=== PATIENT | male | born 1955 | race African-American/Black ===

== ENCOUNTER 2021-10-17 11:40 | Inpatient (IN) | payer MEDICAID ==
[~2021-10-17] VITALS: Ht 182.9 cm; Wt 74.8 kg
[2021-10-17 12:48] LABS: BASOPHILS % 0.4 % (0.0-2.0); HEMATOCRIT. 45.2 % (42.0-52.0); HEMOGLOBIN. 14.7 g/dL (14.0-18.0); LYMPHOCYTES % 26.3 % (20.0-50.0); MEAN CORPUSCULAR VOLUME 73.9 fL (80.0-94.0); MEAN PLATELET VOLUME 9.9 fl (7.4-10.4); MONOCYTES % 12.4 % (2.0-8.0); NEUTROPHILS % 59.9 % (40.0-76.0); PLATELET 151 x1000/uL (130-400); RED BLOOD CELL COUNT 6.12 mill/uL (4.7-6.1)
[2021-10-17 12:54] LABS: CHLORIDE 104 mEq/L (98-107)
[2021-10-17 12:58] LABS: ETHANOL BLOOD < 10 mg/dL
[2021-10-17] MEDS ORDERED: ASPIRIN 325MG TABLET PO ONE (13:45)
[2021-10-17] MEDS ORDERED: CLOPIDOGREL 75MG TABLET PO ONE (13:45)
[2021-10-17 15:45] LABS: CLARITY URINE CLEAR (CLEAR); COLOR URINE YELLOW (YELLOW); KETONES URINE TRACE (NEGATIVE); LEUKOCYTE ESTERASE URINE NEGATIVE (NEGATIVE); NITRITE URINE NEGATIVE (NEGATIVE); OCCULT BLOOD URINE NEGATIVE (NEGATIVE); PROTEIN URINE NEGATIVE (NEGATIVE); SPECIFIC GRAVITY URINE 1.016 (1.005-1.030)
[2021-10-17 16:00] LABS: *AMPHETAMINES SCREEN URINE NEGATIVE (NEGATIVE); *BARBITURATES SCREEN URINE NEGATIVE (NEGATIVE); *COCAINE SCREEN URINE NEGATIVE (NEGATIVE)
[2021-10-17 16:01] LABS: *BENZODIAZEPINES SCREEN URINE NEGATIVE (NEGATIVE); CANNABINOID URINE SCREEN PRESUMTIVE POSITIVE (NEGATIVE); METHADONE URINE SCREEN NEGATIVE (NEGATIVE); OPIATES URINE SCREEN NEGATIVE (NEGATIVE); PHENCYCLIDINE URINE SCREEN NEGATIVE (NEGATIVE)
[2021-10-17] MEDS ORDERED: AMLO10TA80 PO (23:39)
[2021-10-17] MEDS ORDERED: ATOR40TA70 PO (23:39)
[2021-10-17] MEDS ORDERED: HYDR25TA PO (23:39)
[2021-10-17] MEDS ORDERED: GABA-532 PO (23:39)
[2021-10-17] MEDS ORDERED: ACETAMINOPHEN 325MG TABLET PO PRN (23:45)
[2021-10-18 00:25] VITALS: BP 162/100
[2021-10-18 04:00] VITALS: BP 138/81
[2021-10-18] MEDS: GABAPENTIN 300MG CAPSULE PO SCH ×3 (05:17→21:20)
[2021-10-18 08:00] VITALS: BP 158/72
[2021-10-18 08:08] LABS: HEMOGLOBIN. 13.7 g/dL (14.0-18.0); MEAN CORPUSCULAR HEMOGLOBIN 24.3 pg (28.0-32.0); MEAN CORPUSCULAR VOLUME 74.5 fL (80.0-94.0); MEAN PLATELET VOLUME 10.2 fl (7.4-10.4); PLATELET 164 x1000/uL (130-400); RED BLOOD CELL COUNT 5.63 mill/uL (4.7-6.1); RED CELL DISTRIBUTION WIDTH 15.3 % (11.6-14.6)
[2021-10-18 08:43] LABS: CHLORIDE 105 mEq/L (98-107)
[2021-10-18 08:53] LABS: LDL CHOLESTEROL 107 mg/dL (5-100)
[2021-10-18 08:55] LABS: HDL CHOLESTEROL 44 mg/dL (40-59)
[2021-10-18] MEDS ORDERED: ENOXAPARIN 40MG/0.4ML SYR SUBCUT SCH (09:00)
[2021-10-18] MEDS: HYDROCHLOROTHIAZIDE 25MG TABLET PO SCH (09:00)
[2021-10-18] MEDS: AMLODIPINE 10MG TABLET PO SCH (10:50)
[2021-10-18 12:00] VITALS: BP 169/89
[2021-10-18 16:00] VITALS: BP 154/86
[2021-10-18 16:27] LABS: PLATELET ESTIMATE NORMAL
[2021-10-18] MEDS: ENOXAPARIN 40MG/0.4ML SYR SUBCUT SCH (18:22)
[2021-10-18 20:00] VITALS: BP 144/84
[2021-10-19] VITALS: BP 141/78
[2021-10-19 04:00] VITALS: BP 148/91
[2021-10-19] MEDS: GABAPENTIN 300MG CAPSULE PO SCH ×3 (06:36→22:28)
[2021-10-19 08:00] VITALS: BP 150/87
[2021-10-19] MEDS: ASPIRIN 81MG TABLET PO SCH (09:32)
[2021-10-19] MEDS: HYDROCHLOROTHIAZIDE 25MG TABLET PO SCH (09:32)
[2021-10-19] MEDS: THIAMINE HCL 100MG TABLET PO SCH (09:33)
[2021-10-19] MEDS: AMLODIPINE 10MG TABLET PO SCH (09:33)
[2021-10-19 12:00] VITALS: BP 152/78
[2021-10-19] MEDS: ENOXAPARIN 40MG/0.4ML SYR SUBCUT SCH (15:27)
[2021-10-19 16:00] VITALS: BP 150/67
[2021-10-19] MEDS ORDERED: ASPI-1406 MT (16:19)
[2021-10-19 20:00] VITALS: BP 167/91
[2021-10-19] MEDS ORDERED: ATORVASTATIN CALCIUM 40MG TABLET PO SCH (21:00)
[2021-10-19] MEDS ORDERED: CLONIDINE 0.1MG TABLET PO PRN (21:45)
[2021-10-20] VITALS: BP 126/78
[2021-10-20 04:00] VITALS: BP 152/79
[2021-10-20] MEDS: GABAPENTIN 300MG CAPSULE PO SCH ×2 (06:44→14:27)
[2021-10-20 08:00] VITALS: BP 150/87
[2021-10-20] MEDS: THIAMINE HCL 100MG TABLET PO SCH (08:43)
[2021-10-20] MEDS: ASPIRIN 81MG TABLET PO SCH (08:43)
[2021-10-20] MEDS: HYDROCHLOROTHIAZIDE 25MG TABLET PO SCH (08:43)
[2021-10-20] MEDS: AMLODIPINE 10MG TABLET PO SCH (08:44)
[2021-10-20] MEDS: ENOXAPARIN 40MG/0.4ML SYR SUBCUT SCH (08:44)
[2021-10-20] MEDS ORDERED: CLOPIDOGREL 75MG TABLET PO SCH (09:00)
[2021-10-20 12:00] VITALS: BP 152/93
[2021-10-20] MEDS ORDERED: IOHEXOL-350 100 ML BOTTLE ONE (13:07)
[2021-10-20 16:01] VITALS: BP 152/93
== END 2021-10-20 17:49 | disposition home health service (06) | DRG 45 ==
LOC: ER 12:00 → EDBEDREQ 14:19 → MICUSO 21:11 → 5WST 21:22
PROVIDERS: ADMIT Internal Medicine; ATTEND Internal Medicine
DX: I63.9 Cerebral infarction, unspecified (principal); G81.91 Hemiplegia, unspecified affecting right dominant side; F10.10 Alcohol abuse, uncomplicated; I10 Essential (primary) hypertension; R47.81 Slurred speech; R29.810 Facial weakness; R79.89 Other specified abnormal findings of blood chemistry; E78.5 Hyperlipidemia, unspecified; I65.22 Occlusion and stenosis of left carotid artery
CPT/HCPCS: 36415; 70498; 70551; 71045; 80053; 80061; 80305; 80320; 81003; 84145; 84484; 85025; 93005; 93880; 97116; 97162; 97166; 99291; J1650; Q9967; G0480